=== PATIENT | female | born 1950 | race Caucasian/White ===

== ENCOUNTER → 2017-02-11 | Outpatient (CLI) | payer MEDICARE, OTHER | END | disposition home or self-care (01) | LOC: CDC 02-08 11:00 | DX: I49.9 Cardiac arrhythmia, unspecified (principal); Z00.01 Encounter for general adult medical examination with abnormal findings; L65.9 Nonscarring hair loss, unspecified; R53.83 Other fatigue; H54.41 Blindness, right eye, normal vision left eye | CPT/HCPCS: 93000 ==